=== PATIENT | female | born 1980 ===

== ENCOUNTER 2018-02-21 19:43 | Emergency (ER) | payer BC ==
[2018-02-21 20:18] VITALS: BMI 23.8
[2018-02-21] MEDS ORDERED: Tdap Vaccine 0.5 ml Vial (10-64 yrs) IM ONE (21:49)
--- NOTE | 2018-02-21 22:01 | ED PDOC ---
Upper Extremity Pain/Injury Time Seen by Provider: 02/21/18 21:40 Chief Complaint (Nursing): Finger,Hand,&Wrist Chief Complaint (Provider): Finger,Hand,&Wrist History Per: Patient History/Exam Limitations: no limitations Onset/Duration Of Symptoms: Hrs Additional Complaint(s): 37 y/o female presents for evaluation of a right thumb injury, onset around 7 PM tonight after the car door shut on her finger. Patient states pain initially was rated as a 9/10 confined to the tip of the thumb. Patient reports taking 600mg of Ibuprofen at 8 PM and now rates her pain as a 5/10 . Patient is concerned for fracture thus prompting today's visit. Patient is right hand dominant. PMD: Osmany Bran Tetanus vaccination not up to date. Past Medical History Reviewed: Historical Data, Nursing Documentation, Vital Signs Vital Signs: Last Vital Signs Temp 98.4 F 02/21/18 20:17 Pulse 69 02/21/18 20:17 Resp 16 02/21/18 20:17 BP 121/83 02/21/18 20:17 Pulse Ox 99 02/21/18 20:17 - Medical History PMH: No Chronic Diseases - Surgical History Surgical History: Appendectomy, - Family History Family History: States: Unknown Family Hx - Immunization History Hx Tetanus Toxoid Vaccination: No - Home Medications Home Medications: Ambulatory Orders Medication Instructions Recorded Azithromycin 250 mg PO DAILY 03/01/15 Ciprofloxacin 0.3% [Ciloxan 0.3% 1 drop OS BID #1 bottle 03/01/15 Ophth SOLN] Gentamicin 0.3% Opht [Genoptic] 1 drop OP 03/01/15 Ondansetron [Zofran] 4 mg PO Q8H #9 tab 03/01/15 Ibuprofen [Motrin] 600 mg PO Q6 PRN #15 tab 01/21/16 traMADol [Ultram] 50 mg PO TID PRN #15 tab 01/21/16 Ibuprofen [Motrin Tab] 600 mg PO Q6 PRN #30 tab 02/21/18 - Allergies Allergies/Adverse Reactions: Allergies Allergy/AdvReac Type Severity Reaction Status Date / Time No Known Allergies Allergy Verified 03/01/15 10:23 Review of Systems ROS Statement: Except As Marked, All Systems Reviewed And Found Negative Musculoskeletal: Positive for: Hand Pain (Right thumb injury ) Physical Exam - Reviewed Nursing Documentation Reviewed: Yes Vital Signs Reviewed: Yes - Physical Exam Comments: GENERAL APPEARANCE: Patient is awake, alert, oriented x 3, in no acute distress. Resting comfortably. NECK: Supple, FROM ENT: Mucus membranes moist. Airway patent, (-) stridor. SKIN: Warm, dry; (-) cyanosis. HAND: (+) swelling and (+) ecchymosis to the palmar aspect of the distal right first digit, (+) tenderness to the distal phalanx of the right first digit. (+) .5 x .5 cm area of subungal hematoma to the proximal nail of the right 1st digit (-) skin break (-) erythema (+) nail intact. Capillary refill and sensation intact. FROM of all digits. NEURO AND PSYCH: Mental status as above. Speech clear, gait steady. (-) facial asymmetry. - ECG O2 Sat by Pulse Oximetry: 99 Pulse Ox Interpretation: Normal Medical Decision Making Medical Decision Making: Time: 2148 Impression: Acute thumb injury, contusion vs fracture Plan: -- Adacel (10-64 yrs) 0.5 ml IM -- Tylenol 650 mg PO -- Hand Right 3 Views XR -- Re-evaluation 2334 XR : no fracture, no dislocation, as read by PA Patient advised that official radiology read of XR is still pending and will call the patient if there is any discrepancy within 24 hours. On re-evaluation, patient reports improvement of symptoms. On exam, patient remains AAOx3, in no acute distress. On exam, neck is supple, lungs CTA, cardiac RRR, neuro exam shows no focal findings. VSS, stable for discharge. Diagnostic results d/w the patient in great detail. Dx of thumb contusion d/w the patient. Based on history, exam and diagnostic results plan will be for discharge and outpatient follow up with PMD/hand specialist. Advised to follow up with primary care physician/hand in 1-2 days without fail. Advised to take medication as prescribed. Return to the emergency room at any time for any new or worsening symptoms. Patient states she fully agrees with and understands discharge instructions. States that she agrees with the plan and disposition. Verbalized and repeated discharge instructions and plan. I have given the patient opportunity to ask any additional questions. Scribe Attestation: Documented by Keyona Euceda, acting as a scribe for Marilin Dinh PA-C. Provider Scribe Attestation: All medical record entries made by the Scribe were at my direction and personally dictated by me. I have reviewed the chart and agree that the record accurately reflects my personal performance of the history, physical exam, medical decision making, and the department course for this patient. I have also personally directed, reviewed, and agree with the discharge instructions and disposition. Disposition - Clinical Impression Clinical Impression: Thumb contusion - Patient ED Disposition Is Patient to be Admitted: No Counseled Patient/Family Regarding: Studies Performed, Diagnosis, Need For Followup, Rx Given - Disposition Referrals: Jeremy Sin MD [Staff Provider] - Disposition: Routine/Home Disposition Time: 23:37 Condition: STABLE Additional Instructions: The emergency medical care you received today was directed at your acute symptoms. If you were prescribed any medication, please fill it and take as directed. It may take several days for your symptoms to resolve. Return to the Emergency Department if your symptoms worsen, do not improve, or if you have any other problems. Please contact your doctor in 2 days for re-evaluation and follow up / or call one of the physicians/clinics you have been referred to that are listed on the Patient Visit Information form that is included in your discharge packet. Bring any paperwork you were given at discharge with you along with any medications you are taking to your follow up visit. Our treatment cannot replace ongoing medical care by a primary care provider (PCP) outside of the emergency department. Prescriptions: Ibuprofen [Motrin Tab] 600 mg PO Q6 PRN #30 tab PRN Reason: Pain, Moderate (4-7) Instructions: Contusion (DC) Forms: [employer] (Lithuanian) Print Language: SLOVAK - POA Present On Arrival: Falls Or Trauma
[2018-02-21] MEDS ORDERED: Bacitracin 500 Units/gm Oint Foilpak UD ONE (23:46)
[2018-02-21 23:49] VITALS: BP 122/78; PULSE 78; RESP 18; TEMP 98
--- NOTE | 2018-02-22 09:54 | RAD ---
PROCEDURE: Right Hand Radiographs. HISTORY: thumb injury COMPARISON: None. FINDINGS: BONES: Bone alignment and mineralization are normal. There is no acute displaced fracture or bone destruction. JOINTS: Normal. No osteoarthritic changes. SOFT TISSUES: Normal. OTHER FINDINGS: None. IMPRESSION: No acute fracture or dislocation.
[2018-02-25 05:20] VITALS: O2SAT 99
== END 2018-02-21 23:47 | disposition home or self-care (01) ==
LOC: H.ER 19:43
DX: S60.011A Contusion of right thumb without damage to nail, initial encounter (principal); W22.8XXA Striking against or struck by other objects, initial encounter; Y92.89 Other specified places as the place of occurrence of the external cause